=== PATIENT | male | born 1945 | race Caucasian/White ===

== ENCOUNTER 2023-10-01 01:55 | Outpatient (CLI) | payer OTHER, SELFPAY ==
--- NOTE | 2023-10-01 | ETT_ITS ---
APPROVED REPORT Exam: Exercise Treadmill Patient Location: Out-Patient Room/Bed: Stress Nurse: Amarilis Chirinos RN Ordering Provider:DEMETRIA CLANCY, Contact Number: [phone] BMI: 26.13 Baseline Rhythm: Sinus Bradycardia Indications: Chest pain, Medical History Medical History: CKD stage 3, GERD, ablation of AV node, HLD, HTN, GOLDEN, paroxysmal afib, DMII, major depressive disorder, cardiac murmur Cardiac Medications: Diltiazem, apixaban, insulin, tadalafil Allergies: Contrast media, iodinated radiocontrast dye, lisinopril Cardiac Risk Factors: Family hx, diabetes, asthma, HTN, HLD, former smoker Previous Cardiac Procedures: Ablation Pretest Chest Pain Characteristics: None Exercise History: Physically active Physical Disabilities: None Lung Sounds: Clear to auscultation Heart Sounds: Bradycardia Stress Test Details Test: Exercise stress testing was performed using a Souleymane protocol. Rest Stress HR Resting HR Supine: 48 bpm Max Heart Rate (APMHR): 144 bpm Resting HR Standin bpm Target HR (85% APMHR): 122 bpm Max HR Achieved: 129 bpm % of APMHR: 90 Recovery HR: 59 bpm HR response to stress: Normal HR response to stress BP Resting BP Supine: 178/92 mmHg Resting BP Standin/70 mmHg Max BP: 224/64 mmHg Recovery BP: 176/72 mmHg BP response to stress: Abnormal hypertensive response to stress. ECG Resting ECG: Sinus Bradycardia Ectopy: None Stress ECG: Sinus Tachycardia ST Change: Horizontal ST depression, Downsloping ST depression, Upsloping ST depression Lead(s): inferior, V6 Maximum ST Deviation: 1-3 mm Arrhythmia: Rare PVC's Recovery ECG: Sinus Rhythm Recovery ST Change: Horizontal ST depression, Downsloping ST depression Lead(s): inferior leads, V6 Recovery ST Deviation: 1-2 mm Recovery Arrhythmia: Occasional PAC's Comment: ST depression less than 1 mm at end of recovery Clinical Reason for Termination: Target HR Achieved, Fatigue Stress Symptoms: General Fatigue Exercise duration: 06 min49 sec Highest Stage Reached: Stage 3: 3.4 mph at 14% grade. Exercise capacity: 8.32 METs Angina Score: None Torres Treadmill Score: 4.0 Rate Pressure Product: [id number] Stress ECG Conclusion 1. Resting electrocardiogram is normal 2. Patient exercised on the Souleymane protocol and completed workload of 8.32 METS 3. Mildly hypertensive blood pressure response to exercise. Normal heart rate response to exercise. The patient achieved 90% of predicted heart rate for age 4. There was 1.[address] depression in the inferior and anterolateral leads at peak exercise. Elect rocardiographically the test was consistent with myocardial ischemia 5. There were no significant dysrhythmias Torres Treadmill Score is 4.0 which is Moderate risk. Stress Test Summary STAGE Time (mins) Speed (mph) Grade (%) HR BP SpO2 SYMPTOMS METS Supine 48 178/92 98% Standing 56 146/70 1 3 1.7 10 83 162/68 97% 4.5 2 6 2.5 12 111 172/64 98% 7 3 9 3.4 14 129 10 1 min recovery 98 188/50 3 min recovery 64 224/64 6 min recovery 59 192/68 9 min recovery 59 176/[address] depressions close to baseline at end of recovery and under 1 mm. Patient left ambulatory in no paulina arent distress.
== END 2023-10-01 02:15 ==
PROVIDERS: PCP Physician Assistant Medical; Visit Provider Registered Nurse
DX: R07.9 Chest pain, unspecified (principal); R06.00 Dyspnea, unspecified
CPT/HCPCS: 93017